=== PATIENT | female | born 1940 | race African-American/Black ===

== ENCOUNTER 2017-12-29 15:04 | Inpatient (IN) | payer MEDICARE, OTHER ==
[~2017-12-29] VITALS: Ht 170.2 cm; Wt 61.7 kg
[2017-12-29 16:01] LABS: BASOPHILS % 0.1 % (0.0-2.0); EOSINOPHILS % 2.2 % (0.0-5.0); HEMATOCRIT. 23.4 % (36.0-48.0); HEMOGLOBIN. 7.8 g/dL (12.0-16.0); LYMPHOCYTES % 18.6 % (20.0-50.0); MEAN CORPUSCULAR HEMOGLOBIN 29.9 pg (28.0-32.0); MEAN CORPUSCULAR VOLUME 89.6 fL (81.0-99.0); MEAN PLATELET VOLUME 7.4 fl (7.4-10.4); NEUTROPHILS % 69.1 % (40.0-76.0); PLATELET 154 x1000/uL (130-400); RED BLOOD CELL COUNT 2.61 mill/uL (4.2-5.4)
[2017-12-29 16:07] LABS: CHLORIDE 104 mEq/L (98-107)
[2017-12-29] MEDS ORDERED: DIPHENHYDRAMINE 50MG/ML VIAL IV PRN (20:30)
[2017-12-29] MEDS ORDERED: CLONIDINE 0.1MG TABLET PO PRN (20:30)
[2017-12-29] MEDS ORDERED: METHYLPREDNISOLONE SOD SUCC 125 MG/2 ML VIAL IV NR (20:30)
[2017-12-29] MEDS ORDERED: DOCUSATE SODIUM 100MG CAPSULE PO PRN (20:30)
[2017-12-29] MEDS ORDERED: LORAZEPAM 0.5MG TABLET PO PRN (20:30)
[2017-12-29] MEDS ORDERED: IPRATROPIUM/ALBUTEROL 0.5-3(2.5)MG/3ML NEB INH PRN (20:30)
[2017-12-29] MEDS ORDERED: ACETAMINOPHEN 325MG TABLET PO PRN (20:30)
[2017-12-29] MEDS ORDERED: MAGNESIUM/ALUMINUM HYDROXIDE/SIMETHICONE 30ML UDC PO PRN (20:30)
[2017-12-29] MEDS ORDERED: GUAIFENESIN 200MG/10ML SUGAR FREE UDC PO PRN (20:30)
[2017-12-29] MEDS ORDERED: ONDANSETRON HCL 4MG/2ML VIAL IV PRN (20:30)
[2017-12-29 21:32] VITALS: BP 130/66
[2017-12-29] MEDS ORDERED: TRAM50TA3 MT (21:32)
[2017-12-29] MEDS ORDERED: POTA25TA8 MT (21:32)
[2017-12-29] MEDS ORDERED: CARV12.545 PO (21:32)
[2017-12-29] MEDS ORDERED: SPIR25TA6 MT (21:32)
[2017-12-29 21:34] VITALS: BP 130/66
[2017-12-29] MEDS: DEXT 5%/0.45% NACL 1000ML 1,000 ML IV SCH (21:55)
[2017-12-29 23:57] VITALS: BP 129/74
[2017-12-30] MEDS: HYDROCODONE/ACETAMINOPHEN 5/325MG TABLET PO PRN ×2 (02:45→21:40)
[2017-12-30 04:00] VITALS: BP 108/49
[2017-12-30 05:46] LABS: HEMATOCRIT. 21.1 % (36.0-48.0); HEMOGLOBIN. 7.2 g/dL (12.0-16.0); MEAN CORPUSCULAR HEMOGLOBIN 30.3 pg (28.0-32.0); MEAN CORPUSCULAR VOLUME 88.7 fL (81.0-99.0); MEAN PLATELET VOLUME 7.5 fl (7.4-10.4); PLATELET 137 x1000/uL (130-400); RED BLOOD CELL COUNT 2.38 mill/uL (4.2-5.4); RED CELL DISTRIBUTION WIDTH 15.8 % (11.6-14.6)
[2017-12-30 06:20] LABS: CHLORIDE 104 mEq/L (98-107)
[2017-12-30 06:27] LABS: LDL CHOLESTEROL 68 mg/dL (5-100)
[2017-12-30 06:28] LABS: CREATINE KINASE 61 IU/L (26-192)
[2017-12-30 06:29] LABS: HDL CHOLESTEROL 62 mg/dL (40-59); T4 FREE 0.91 ng/dL (0.76-1.46)
[2017-12-30 08:00] VITALS: BP 117/63
[2017-12-30] MEDS: HYDROCODONE/APAP 7.5/325MG 1 TAB TABLET PO PRN (09:12)
[2017-12-30 10:40] LABS: PLATELET ESTIMATE NORMAL
[2017-12-30 12:00] VITALS: BP 121/57
[2017-12-30] MEDS: DEXT 5%/0.45% NACL 1000ML 1,000 ML IV SCH (14:06)
[2017-12-30 20:12] VITALS: BP 136/58
[2017-12-31] VITALS (8 sets, daily range): BP systolic 119–154; BP diastolic 47–82
[2017-12-31] MEDS: HYDROCODONE/APAP 7.5/325MG 1 TAB TABLET PO PRN ×3 (02:03→20:41)
[2017-12-31] MEDS: DEXT 5%/0.45% NACL 1000ML 1,000 ML IV SCH ×2 (06:44→22:03)
[2017-12-31 06:57] LABS: HEMATOCRIT. 28.4 % (36.0-48.0); HEMOGLOBIN. 9.7 g/dL (12.0-16.0); MEAN CORPUSCULAR HEMOGLOBIN 29.9 pg (28.0-32.0); PLATELET 138 x1000/uL (130-400); RED BLOOD CELL COUNT 3.23 mill/uL (4.2-5.4); RED CELL DISTRIBUTION WIDTH 15.4 % (11.6-14.6)
[2017-12-31 08:20] LABS: PLATELET ESTIMATE NORMAL
[2017-12-31] MEDS: CARVEDILOL 12.5MG TABLET PO SCH ×2 (13:22→20:39)
[2017-12-31] MEDS: SPIRONOLACTONE 25MG TABLET PO SCH (13:22)
[2018-01-01] VITALS: BP 121/63
[2018-01-01 04:00] VITALS: BP 114/75
[2018-01-01 07:09] LABS: HEMATOCRIT 33.1 % (36.0-48.0); HEMOGLOBIN 11.4 g/dL (12.0-16.0); MEAN CORPUSCULAR HEMOGLOBIN 30.5 pg (28.0-32.0); MEAN CORPUSCULAR VOLUME 88.6 fL (81.0-99.0); PLATELET 157 x1000/uL (130-400); RED BLOOD CELL COUNT 3.73 mill/uL (4.2-5.4); RED CELL DISTRIBUTION WIDTH 15.9 % (11.6-14.6)
[2018-01-01 08:00] VITALS: BP 147/62
[2018-01-01] MEDS: CARVEDILOL 12.5MG TABLET PO SCH (09:15)
[2018-01-01] MEDS: SPIRONOLACTONE 25MG TABLET PO SCH (09:15)
[2018-01-01] MEDS: HYDROCODONE/APAP 7.5/325MG 1 TAB TABLET PO PRN (09:16)
[2018-01-01] MEDS: DEXT 5%/0.45% NACL 1000ML 1,000 ML IV SCH (09:17)
[2018-01-01 12:00] VITALS: BP 130/68
== END 2018-01-01 15:00 | disposition home or self-care (01) | DRG 682 ==
LOC: ER 15:04 → 7WST 19:09 → ENRESERV 19:29 → SUPCPDRO 20:13
PROVIDERS: ADMIT Family Medicine Adult Medicine; ATTEND Family Medicine Adult Medicine
PROC: 30233N1 Transfusion of Nonautologous Red Blood Cells into Peripheral Vein, Percutaneous Approach (ICD-10-PCS; 2017-12-31)
PROC: 4B02XTZ Measurement of Cardiac Defibrillator, External Approach (ICD-10-PCS; principal; 2018-01-01)
DX: N17.9 Acute kidney failure, unspecified (principal); I50.23 Acute on chronic systolic (congestive) heart failure; I42.9 Cardiomyopathy, unspecified; I13.0 Hypertensive heart and chronic kidney disease with heart failure and stage 1 through stage 4 chronic kidney disease, or unspecified chronic kidney disease; E44.1 Mild protein-calorie malnutrition; G90.8 Other disorders of autonomic nervous system; M06.9 Rheumatoid arthritis, unspecified; M19.90 Unspecified osteoarthritis, unspecified site; E87.5 Hyperkalemia; D64.9 Anemia, unspecified; D72.819 Decreased white blood cell count, unspecified; Z95.810 Presence of automatic (implantable) cardiac defibrillator; N18.9 Chronic kidney disease, unspecified; I44.0 Atrioventricular block, first degree; I34.0 Nonrheumatic mitral (valve) insufficiency; E87.8 Other disorders of electrolyte and fluid balance, not elsewhere classified; M85.80 Other specified disorders of bone density and structure, unspecified site; Z96.653 Presence of artificial knee joint, bilateral; Z85.3 Personal history of malignant neoplasm of breast; Z90.11 Acquired absence of right breast and nipple; Z92.21 Personal history of antineoplastic chemotherapy; Z68.21 Body mass index [BMI] 21.0-21.9, adult; Z79.899 Other long term (current) drug therapy
CPT/HCPCS: 36415; 71045; 80048; 80053; 80061; 82550; 82668; 83880; 84100; 84439; 84443; 84484; 85025; 85027; 86850; 86900; 86920; 93005; 93306; 93970; 99285; J1200; J2930; J7030; J7050; J7060; P9016